=== PATIENT | male | born 1995 | race Two or more races ===

== ENCOUNTER 2019-03-24 00:13 | Emergency (ER) | payer OTHER ==
[2019-03-24] MEDS ORDERED: COCAINE 4 ML BOTTLE TOP STA (01:29)
--- NOTE | 2019-03-24 01:31 | ED Physician Documentation ---
History of Present Illness - Stated complaint Stated Complaint: NOSE BLEED - Chief complaint Chief Complaint: Heent - Additonal information Additional information: This is a 23-year-old male presents with a nosebleed that began around midnight. Patient states he gets intermittent nosebleeds, and has had a persistent nosebleed in the past that required cauterization. He has had a cough for around a week. He woke up tonight around midnight and began having a nosebleed which he could not control well with direct pressure. After he tried this for around 45 minutes he presented to the emergency department. He denies any history of clotting disorders, no anticoagulant use. His only medical history is hypertension. Review of Systems Nose: reports: Epistaxis GI: denies: Vomiting Neurologic: denies: Generalized weakness PD PAST MEDICAL HISTORY - Past Medical History Cardiovascular: Hypertension Other Past Medical History: Epistaxis - Present Medications Home Medications: Ambulatory Orders Medication Instructions Recorded Confirmed Albuterol Sulfate [Albuterol 03/24/19 Sulfate Hfa] Bp Medication 03/24/19 - Allergies Allergies/Adverse Reactions: Allergies Allergy/AdvReac Type Severity Reaction Status Date / Time No Known Drug Allergies Allergy Verified 03/24/19 00:24 - Living Situation Living Situation: reports: With family Living Arrangement: reports: At home - Family History Family history: reports: Other (Negative for coagulopathy) PD ED PE NORMAL - Vitals Vital signs reviewed: Yes - General General: Alert and oriented X 3 - HEENT HEENT: Other (There is dried blood in the bilateral nares. There is no visible focal site of oozing.) - Cardiac Cardiac: RRR - Respiratory Respiratory: No respiratory distress, Clear bilaterally - Abdomen Abdomen: Soft, Non distended - Derm Derm: Warm and dry - Extremities Extremities: No deformity - Neuro Neuro: Alert and oriented X 3 - Psych Psych: Normal mood, Normal affect Results - Vitals Vitals: Oxygen O2 Source Room air - Labs Labs: Laboratory Tests 03/24/19 03/24/19 01:55 01:55 WBC 5.8 RBC 4.66 L Hgb 13.8 L Hct 40.4 L MCV 86.7 MCH 29.6 MCHC 34.2 RDW 12.6 Plt Count 238 MPV 10.7 Neut # (Auto) 2.8 Lymph # (Auto) 1.7 Wright # (Auto) 0.7 Eos # (Auto) 0.5 Baso # (Auto) 0.0 Absolute Nucleated RBC 0.00 Nucleated RBC % 0.0 PT 14.8 H INR 1.3 H PD MEDICAL DECISION MAKING - ED course Complexity details: considered differential (Epistaxis, coagulopathy, thrombocytopenia, posterior nosebleed) ED course: Patient presents with epistaxis, nose clamps were placed and there was good control of the bleeding. They were left on for 20 minutes, afterwards when they were removed patient did not have any significant bleeding. His labs show normal platelet count, normal INR, and near normal hemoglobin. Patient was observed for over an hour with the nose clamp removed, he had no significant rebleeding. After discussion with him he feels comfortable going home. We provided nose clamps, and he will use these to apply direct pressure for 15 minutes if the bleeding recurs. If he still was having bleeding after doing this he will return to the emergency department. He feels well with normal vital signs, and appears appropriate for outpatient follow-up. I recommended follow-up with his primary care provider as well, and I discussed using saline spray and Vaseline to help protect his nose from further rebleeding. Patient agrees and was discharged home in the care of his . Departure - Departure Disposition: 01 Home, Self Care Clinical Impression: Epistaxis Condition: Good Instructions: Nosebleed Follow-Up: ELLIOTT ALEXANDER MD [Primary Care Provider] - Within 1 week (For follow up on nosebleeds as needed) Comments: You were seen today for nosebleed, this has stopped with direct pressure. If this recurs at home, please apply the nose clamps lean forward, and hold this direct pressure for 15 minutes. If you have continued bleeding, return to the emergency department. Please do not pick at her touch your nose if possible, Use a gentle saline spray 4 times daily in your nostrils, and once the dried blood is out of your left nose, you may apply a layer of Vaseline to the inside of nose very gently with a Q-tip. Discharge Date/Time: 03/24/19 03:44
[2019-03-24 02:00] LABS: BASOPHILS % (AUTO) 0.3 %; EOSINOPHILS # (AUTO) 0.5 10^3/uL (0.0-0.7); EOSINOPHILS % (AUTO) 9.1 %; HGB - HEMOGLOBIN 13.8 g/dL (14.0-18.0); LYMPHOCYTES # (AUTO) 1.7 10^3/uL (1.5-3.5); LYMPHOCYTES % (AUTO) 28.5 %; MEAN CORPUSCULAR HEMOGLOBIN 29.6 pg (27.0-31.0); MEAN CORPUSCULAR HGB CONC 34.2 g/dL (32.0-36.0); MEAN CORPUSCULAR VOLUME 86.7 fL (80.0-94.0); MEAN PLATELET VOLUME 10.7 fL (7.4-11.4); MONOCYTES # (AUTO) 0.7 10^3/uL (0.0-1.0); MONOCYTES % (AUTO) 11.3 %; NEUTROPHILS # (AUTO) 2.8 10^3/uL (1.5-6.6); NEUTROPHILS % (AUTO) 48.6 %; PLT - PLATELET COUNT 238 10^3/uL (130-450); RED BLOOD COUNT 4.66 10^6/uL (4.70-6.10); RED CELL DISTRIBUTION WIDTH 12.6 % (12.0-15.0); WHITE BLOOD COUNT 5.8 x10^3/uL (4.8-10.8)
[2019-03-24 02:05] LABS: INR 1.3 (0.8-1.2); PT - PROTHROMBIN TIME 14.8 secs (9.9-12.6)
[2019-03-24 03:43] VITALS: BP 146/81
== END 2019-03-24 03:44 | disposition home or self-care (01) ==
LOC: ED 00:13
DX: R04.0 Epistaxis (principal); I10 Essential (primary) hypertension
CPT/HCPCS: 36415; 85025; 85610; 99282; 99283

== ENCOUNTER 2019-03-27 09:53 | Emergency (ER) | payer OTHER ==
[2019-03-27 10:02] VITALS: BP 169/83
--- NOTE | 2019-03-27 12:04 | ED Physician Documentation ---
PD HPI HEENT - Stated complaint Stated Complaint: NOSE BLEED - Chief complaint Chief Complaint: Heent - History obtained from History obtained from: Patient - History of Present Illness Timing - onset: How many days ago Timing - duration: Days (3) Timing - details: Intermittant (He had had some runny nose and cough and congestion for several days. He had a nosebleed 3 days ago that lasted for a few hours. He came here to the ER but it stopped at the time. No particular intervention. He states he blew his nose today and it started up again and has a persistent dripping despite pinching his nose.) Location: Nose (has had some congestion and runny nose, with nose blowing. Had onset nosebleed 3 days ago lasted few hours then stopped. Onset again today but has continued to drip steadily, even with pinching his nose.) Associated symptoms: Congestion, Rhinorrhea, Cough Recently seen: Emergency Dept (3 days ago, but bleeding had stopped so no particular treatment.) Review of Systems Constitutional: denies: Fever Nose: reports: Rhinorrhea / runny nose, Congestion, Epistaxis (left nostril). denies: Sinus pressure / pain Throat: denies: Sore throat Respiratory: reports: Cough. denies: Dyspnea GI: denies: Nausea, Vomiting, Diarrhea Skin: denies: Rash, Lesions PD PAST MEDICAL HISTORY - Past Medical History Cardiovascular: Hypertension Respiratory: Asthma Neuro: None Endocrine/Autoimmune: None GI: None : None HEENT: None Psych: Anxiety Musculoskeletal: Other Derm: None - Past Surgical History Past Surgical History: No - Present Medications Home Medications: Ambulatory Orders Medication Instructions Recorded Confirmed Albuterol Sulfate [Albuterol 03/24/19 Sulfate Hfa] Bp Medication 03/24/19 - Allergies Allergies/Adverse Reactions: Allergies Allergy/AdvReac Type Severity Reaction Status Date / Time No Known Drug Allergies Allergy Verified 03/27/19 09:59 - Social History Does the pt smoke?: No Smoking Status: Never smoker Does the pt drink ETOH?: Yes Does the pt have substance abuse?: No - Immunizations Immunizations are current?: Yes - POLST Patient has POLST: No PD ED PE NORMAL - Vitals Vital signs reviewed: Yes - General General: Alert and oriented X 3, No acute distress, Well developed/nourished - HEENT HEENT: Ears normal, Moist mucous membranes, Pharynx benign (with some slight red blood streaked down posterior pharynx. ), Other (kleenex inserted in left nostril and he is holding his nose. He has feeling of blood going down back of throat. kleenex removed from nostril and there is a small vessel inflammation with mild bleeding noted mid medial nasal wall. Some clots collected above the prior kleenex. ) - Neck Neck: Supple, no meningeal sign, No adenopathy - Cardiac Cardiac: RRR, No murmur - Respiratory Respiratory: Clear bilaterally - Derm Derm: Normal color, Warm and dry - Neuro Neuro: Alert and oriented X 3, No motor deficit, Normal speech Results - Vitals Vitals: Oxygen O2 Source Room air Procedures - Epistaxis Site: Left, Anterior Preparation: Clots removed, Lidocaine (with epi), Clamp / pressure applied Treatment: Silver Nitrate, Packing inserted Other: Observed - no bleeding, Pt tolerated well. No: Antibiotics prescribed, Referred to ENT PD MEDICAL DECISION MAKING - ED course Complexity details: considered differential (seems URI with nasal mucosal irritation and small vessel bleeding. Mucosa otherwise appears normal. ), d/w p atient Departure - Departure Disposition: 01 Home, Self Care Clinical Impression: Acute anterior epistaxis Upper respiratory infection Qualifiers: URI type: unspecified URI Qualified Code(s): J06.9 - Acute upper respiratory infection, unspecified Condition: Stable Record reviewed to determine appropriate education?: Yes Instructions: ED Nasal Packing Anterior Removable Follow-Up: ELLIOTT ALEXANDER MD [Primary Care Provider] - Comments: Leave the packing in the nostril until this evening. Could even leave it until the morning if you are able. This will allow time for the chemical sealant to settle in and heal over low bit better. After that to use some moisturizing nose drops several times a day to help keep it moist and clear. Use the nose clamp if needed for recurrent bleeding. I would anticipate this to not bleed any further once this is healed. Discharge Date/Time: 03/27/19 12:57
== END 2019-03-27 12:57 | disposition home or self-care (01) ==
LOC: ED 09:53
DX: R04.0 Epistaxis (principal); J06.9 Acute upper respiratory infection, unspecified; I10 Essential (primary) hypertension
CPT/HCPCS: 30901; 99282